=== PATIENT | female | born 1995 | race Caucasian/White ===

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

== ENCOUNTER 2017-06-28 20:06 | Emergency (ER) | payer MEDICAID ==
[2017-06-28 20:38] LABS: BASOPHILS 0.2 % (0-2); EOSINOPHILS 3.2 % (0-7); HEMATOCRIT 37.8 % (36.0-48.0); IMMATURE GRANULOCYTES 0.3 % (0-5); LYMPHOCYTES 33.6 % (15-50); MCH 30.7 pg (26.0-34.0); MCHC 34.4 g/dL (31.0-37.0); MCV 89.4 fL (80.0-100.0); MONOCYTES 5.8 % (2-11); NEUTROPHILS 56.9 % (40-80); RBC 4.23 10x6/uL (4.00-5.40); RDW 12.3 % (11.5-14.5); WBC 11.7 10x3/uL (4.8-10.8)
[2017-06-28 20:39] LABS: PLATELET COUNT 274 10x3/uL (130-400)
[2017-06-28 20:51] LABS: HCG SERUM POSITIVE (NEGATIVE)
[2017-06-28 21:18] LABS: ALBUMIN 3.3 g/dL (3.4-5.0); ALKALINE PHOSPHATASE 68 U/L (46-116); ALT (SGPT) 24 U/L (10-68); CALC OSMOLALITY 272 mosm/kg (275-300); CALCIUM 8.8 mg/dL (8.5-10.1); CARBON DIOXIDE 23.2 mmol/L (21.0-32.0); CHLORIDE - SERUM 102 mmol/L (98-107); CREATININE - SERUM 0.6 mg/dL (0.6-1.3); GLUCOSE 100 mg/dL (74-106); HCG - QUANTITATIVE (MATERNAL) 127440 mIU/mL; POTASSIUM - SERUM 3.8 mmol/L (3.5-5.1); SODIUM 137 mmol/L (136-145); UREA NITROGEN 10 mg/dL (7-18); eGFR NON AFRICAN AMERICAN > 90 mL/min (90-120)
== END 2017-06-29 00:46 | disposition home or self-care (01) ==
LOC: D.ER 20:06
PROVIDERS: Emergency Medicine
DX: O20.9 Hemorrhage in early pregnancy, unspecified (principal); Z3A.10 10 weeks gestation of pregnancy; K27.9 Peptic ulcer, site unspecified, unspecified as acute or chronic, without hemorrhage or perforation

== ENCOUNTER 2019-01-27 18:33 | Emergency (ER) | payer MEDICAID ==
[~2019-01-27] VITALS: Ht 162.6 cm; Wt 63.0 kg
[2019-01-27 18:56] VITALS: Ht 162.6 cm; Wt 63.0 kg
[2019-01-27 19:53] VITALS: BP 125/74
== END 2019-01-27 19:54 | disposition home or self-care (01) ==
LOC: D.ER 18:33
DX: S01.01XA Laceration without foreign body of scalp, initial encounter (principal); V49.9XXA Car occupant (driver) (passenger) injured in unspecified traffic accident, initial encounter; Y93.89 Activity, other specified; Y92.410 Unspecified street and highway as the place of occurrence of the external cause; S06.0X9A Concussion with loss of consciousness of unspecified duration, initial encounter

== ENCOUNTER 2019-08-05 08:45 | Emergency (ER) | payer MEDICAID ==
[~2019-08-05] VITALS: Ht 162.6 cm; Wt 56.8 kg
[2019-08-05 08:49] VITALS: Ht 162.6 cm; Wt 56.8 kg
[2019-08-05] MEDS ORDERED: IMITREX50 MG PO (09:18)
[2019-08-05 09:52] VITALS: BP 118/74
== END 2019-08-05 09:58 | disposition home or self-care (01) ==
LOC: D.ER 08:45
DX: R51 Headache (principal); F17.210 Nicotine dependence, cigarettes, uncomplicated